=== PATIENT | male | born 1960 | race Caucasian/White ===

== ENCOUNTER → 2016-11-09 | Outpatient (CLI) | payer OTHER ==
[2016-11-09 15:42] LABS: URINE APPEARANCE CLEAR (CLEAR); URINE BILIRUBIN NEG (NEG); URINE COLOR DK YELLOW; URINE EPITHELIAL CELL AUTO >30 /lpf (0-5); URINE NITRITE NEG (NEG); URINE PH 5.5 (4.5-7.5); URINE SPECIFIC GRAVITY 1.026 (1.000-1.030); UROBILINOGEN NEG (NEG); ZZUR CULT IF INDIC CLEAN CATCH NO
[2016-11-09 15:47] LABS: MANUAL MICROSCOPIC REQUIRED? NO; REVIEW REQ? YES
[2016-11-09 16:10] LABS: URINE PROTIEN/CREAT RATIO 6.6 (0-0.2); URINE TOTAL PROTEIN 1261.2 mg/dl (0-11.9)
[2016-11-09 16:11] LABS: URINE MUCUS PRESENT (NONE PRSENT)
== END | disposition home or self-care (01) ==
LOC: C.LAB1850 14:10
PROVIDERS: ATTEND Internal Medicine Nephrology
DX: R80.0 Isolated proteinuria (principal)

== ENCOUNTER → 2017-01-10 | Outpatient (CLI) | payer OTHER ==
[2017-01-10 14:19] LABS: BASO % 0.3 %; BASO ABS # 0.04 K/uL (0-0.2); COMPLETE YES; IG% 0.3 %; LYMPH ABS # 2.88 K/uL (1.2-3.4); MEAN CELL VOLUME 89.5 fL (80-100); MEAN CORPUSCULAR HGB CONC 34.7 g/dl (32-36); MEAN PLATELET VOLUME 12.4 fL (7.4-10.4); MONO % 9.9 %; NEUT % 61.5 %; PLATELET COUNT 200 K/uL (130-400); RED BLOOD COUNT 5.03 M/uL (4.7-6.1)
[2017-01-13 06:05] LABS: ALPHA-2-GLOBULIN % 4.95 %; BETA GLOBULIN % 11.24 %; CREATININE UR 80 MG/DL (20-370); FREE KAPPA 28.1 MG/L (3.3-19.4); FREE KAPPA/LAMBDA RATIO 1.49 (0.26-1.65); FREE LAMBDA 18.8 MG/L (5.7-26.3); GAMMA GLOBULIN 0.9 G/DL (0.8-1.7); TOTAL PROTEIN 6.2 G/DL (6.2-8.3)
== END | disposition home or self-care (01) ==
LOC: C.LAB1850 12:52
PROVIDERS: ATTEND Internal Medicine Nephrology
DX: R80.0 Isolated proteinuria (principal)